=== PATIENT | male | born 1970 | race Hispanic/Latino ===

== ENCOUNTER 2016-10-24 19:38 | Emergency (ER) | payer SELFPAY ==
[2016-10-24 19:38] VITALS: BMI 29.0
[2016-10-24 20:50] VITALS: BP 130/70; PULSE 60; RESP 14; TEMP 98; O2SAT 98
[2016-10-24] MEDS ORDERED: Naproxen 550 mg Tab PO STA (21:10)
--- NOTE | 2016-10-24 21:15 | C.PDOC ---
History Of Present Illness 46 yr old male presents to the ER with complaints of buttocks pain for 1 day. Patient states he fell at home and landed on his buttock. Patient denies back pain, abdominal pain, leg pain, dysuria, weakness or numbness. Time Seen by Provider: 10/24/16 20:52 Chief Complaint (Nursing): Back Pain History Per: Patient History/Exam Limitations: no limitations Onset/Duration Of Symptoms: Days (1) Current Symptoms Are (Timing): Still Present Quality Of Discomfort: "Pain" Associated Symptoms: denies: Incontinence, New Weakness, New Numbness Exacerbating Factor(s): Movement Recent travel outside of the [place]: No Past Medical History Reviewed: Historical Data, Nursing Documentation, Vital Signs Vital Signs: Last Vital Signs Temp 98 F 10/24/16 20:47 Pulse 60 10/24/16 20:47 Resp 14 10/24/16 20:47 BP 130/70 10/24/16 20:47 Pulse Ox 98 10/24/16 22:09 Family History: States: No Known Family Hx - Social History Hx Alcohol Use: No Hx Substance Use: No - Immunization History Hx Tetanus Toxoid Vaccination: No Hx Influenza Vaccination: No Hx Pneumococcal Vaccination: No Review Of Systems Except As Marked, All Systems Reviewed And Found Negative. Gastrointestinal: Negative for: Abdominal Pain Genitourinary: Negative for: Dysuria Musculoskeletal: Positive for: Other ((+) Left hip injury ). Negative for: Back Pain, Leg Pain Neurological: Negative for: Weakness, Numbness Physical Exam - Physical Exam Appears: Non-toxic, No Acute Distress Skin: Warm, Dry, No Rash Head: Atraumatic, Normacephalic Eye(s): bilateral: Normal Inspection, PERRL, EOMI Oral Mucosa: Moist Neck: Normal, Normal ROM, Supple Chest: Symmetrical, No Tenderness Cardiovascular: Rhythm Regular, No Friction Rub, No Murmur Respiratory: Normal Breath Sounds, No Rales, No Rhonchi, No Wheezing Gastrointestinal/Abdominal: Soft, No Tenderness Extremity: Normal ROM, Tenderness ((+) Coccyx tenderness), No Calf Tenderness Pulses: Left Dorsalis Pedis: Normal, Right Dorsalis Pedis: Normal Neurological/Psych: Oriented x3, Normal Speech, Normal Motor, Normal Sensation Gait: Steady ED Course And Treatment O2 Sat by Pulse Oximetry: 98 (on RA) Pulse Ox Interpretation: Normal - Other Rad Coccyx Interpretation: (+) coccyx fx Medical Decision Making Medical Decision Making: PLAN: * X-Ray - Sacrum & Coccyx * Naproxen PO Disposition - Disposition Referrals: [facility] [Outside] Disposition: HOME/ ROUTINE Disposition Time: 21:58 Condition: GOOD Additional Instructions: Follow up with the medical doctor within 1-2 days without fail, Return if worsened, Prescriptions: Naproxen [Naprosyn] 500 mg PO BID #20 tab Acetaminophen [Tylenol] 325 mg PO Q6 PRN #30 tab PRN Reason: Pain, Mild (1-3) traMADol [Ultram] 50 mg PO Q6 PRN #20 tab PRN Reason: Pain Instructions: Coccyx Injury (ED) Print Language: THAI - Clinical Impression Clinical Impression: Fractured coccyx - 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 - Scribe Statement The provider has reviewed the documentation as recorded by the Scribe Svetlana Piña All medical record entries made by the Scribe were at my direction and personally dictated by me. I have reviewed the chart and agree that the record accurately reflects my personal performance of the history, physical exam, medical decision making, and the department course for this patient. I have also personally directed, reviewed, and agree with the discharge instructions and disposition.
[2016-10-24] MEDS ORDERED: Naproxen 550 mg Tab PO ONE (21:18)
--- NOTE | 2016-10-25 12:42 | RAD ---
PROCEDURE: Radiographs of the Sacrum and Coccyx HISTORY: fall onto buttocks, pain COMPARISON: None available. TECHNIQUE: Frontal and lateral views of the sacrum and coccyx FINDINGS: BONES: Sacrum and coccyx unremarkable. No fracture or focal lesion. SACROILIAC JOINTS: Unremarkable. OTHER FINDINGS: None. IMPRESSION: Unremarkable radiographs of the sacrum and coccyx.
== END 2016-10-24 22:14 | disposition home or self-care (01) ==
LOC: C.ER 19:38
DX: S32.2XXA Fracture of coccyx, initial encounter for closed fracture (principal); W19.XXXA Unspecified fall, initial encounter; Y93.9 Activity, unspecified; Y92.009 Unspecified place in unspecified non-institutional (private) residence as the place of occurrence of the external cause